=== PATIENT | male | born 1960 | race Caucasian/White ===

== ENCOUNTER → 2016-08-16 | Outpatient (CLI) | payer BC ==
--- NOTE | 2016-08-16 20:01 | CONS ---
DATE OF CONSULTATION: 08/16/2016 CONSULTATION/NEW PATIENT EVALUATION 55-year-old gentleman who has been [facility] for multiple awakenings from sleep, snoring, significant excessive daytime sleepiness. HISTORY OF PRESENT ILLNESS/SLEEP-WAKE EVALUATION: SLEEP SCHEDULE: Patient's usual sleep schedule on working days is from around 9:00 to 9:30 p.m. until 4:00 a.m., on weekends from around 10:00 p.m. until 6:00 a.m. FALLING ASLEEP: Usually no problems with falling asleep, although the patient has symptoms of restless legs while he goes to bed. He is taking medications for that. DURING SLEEP: During the sleep he snores according to his girlfriend and according to her he also has episodes of stopped breathing during sleep. Patient had significant amount of kicking at night. He wakes up with gasping for air. DURING THE DAY/WAKE STATE: In the morning he wakes up tired, falling asleep during the day. [place] Sleepiness Scale significantly increased to 19. He has problems with concentration, irritability and depression. No history of hypnagogic hallucinations, sleep paralysis or cataplexy. PAST MEDICAL HISTORY: Positive for hypertension, acid reflux. MEDICATIONS: Requip, meclizine, omeprazole, gabapentin. SOCIAL HISTORY: Smoking 1 pack a day for 30 years. Alcohol consumption, none. REVIEW OF SYSTEMS: Awakenings from sleep, significant sleepiness during the day, kicking during the night, restless leg symptoms while falling asleep. No fevers. No double vision. No recent chest pain. No shortness of breath. No abdominal pain. No bleeding episodes. No blood in urine. No seizure episodes. FAMILY HISTORY: Hypertension, heart problems, hyperlipidemia, arthritis, sinus headaches, bronchitis, lung problems, snoring, pneumonia, headaches, cancer, ulcers, acid reflux, restless legs. PHYSICAL EXAMINATION: GENERAL: 55-year-old gentleman without distress. VITAL SIGNS: BP 130/72, HR 65, RR 16. Height 6 feet, weight 193.0, BMI 26.1. Neck 16 inches in circumference. Temperature 97.5. Oxygen saturation at room air 95%. HEENT: PERRLA, EOMI. Evaluation of oropharynx showed low position of soft palate, retrognathia 5 mm, restriction of nasal breathing on the left side. NECK: Supple. No JVD. Thyroid is not palpable. LUNGS: Clear to percussion and to auscultation. Good air exchange. No wheezing or rhonchi. HEART: S1, S2 regular. No murmurs, gallops or rubs. ABDOMEN: Soft and nontender. Bowel sounds are present. No organomegaly appreciated. EXTREMITIES: No clubbing or cyanosis. [employer]: Awake, alert, and oriented x3. Cranial nerves 2 to 7 intact. There is no fasciculation or atrophy noted. No focal deficits observed. IMPRESSION: 1. Snoring, witnessed episodes of stopped breathing during sleep, low position of soft palate, restriction of nasal breathing on the left side, possible obstructive sleep apnea-hypopnea syndrome, although sleep study 4 years ago was negative for sleep apnea. 2. Restless leg syndrome. 3. Periodic limb movements. 4. Patient presented with symptoms of significant excessive daytime sleepiness. [place] Sleepiness Scale increased to 19. Differential diagnosis include hypersomnia if other reason for sleepiness will be excluded. 5. Hypertension. 6. Acid reflux. PLAN: 1. Polysomnography for evaluation of patient's breathing during sleep. 2. CPAP/BiPAP titration if sleep study confirms obstructive sleep apnea-hypopnea syndrome. 3. Preferable position during sleep on the side. 4. No driving if patient feels any sleepiness. Patient is aware of civil and criminal liability for unsafe driving. 5. I will see patient for follow-up visit to explain results of the testing and following plan. 6. Multiple sleep latency test if polysomnogram is negative for obstructive sleep apnea or periodic limb movements. Thank you very much for referring this patient for consultation. Sincerely, Bulmaro España MD, PhD, FAASM. Diplomat of [place] [employer], Sleep Medicine Board by [place] [employer] [place] [employer] Program Support Specialist of [facility]
== END | disposition home or self-care (01) ==
LOC: SLEEP 14:56
PROVIDERS: ATTEND Internal Medicine
DX: G47.61 Periodic limb movement disorder (principal); R06.83 Snoring; G25.81 Restless legs syndrome; I10 Essential (primary) hypertension; K21.9 Gastro-esophageal reflux disease without esophagitis; F17.200 Nicotine dependence, unspecified, uncomplicated
CPT/HCPCS: 99211

== ENCOUNTER 2016-11-30 08:54 | Emergency (ER) | payer BC ==
[2016-11-30 08:59] VITALS: BP 144/80; PULSE 73; RESP 20; TEMP 100.1
--- NOTE | 2016-11-30 09:17 | ED ---
General Adult HPI - General Chief complaint: Fever Stated complaint: fever Time Seen by Provider: 11/30/16 09:01 Source: patient, RN notes reviewed Mode of arrival: ambulatory Limitations: no limitations - History of Present Illness Initial comments: 56-year-old male presents emergency Department chief complaint of dental pain. He had a tooth extracted on Saturday and states he continues to have pain. Patient states today. She states that he had a fever. Patient states he continues to run some low-grade fevers. Patient states he's been taking his antibiotics alternating between the amoxicillin he received from his nurse practitioner as well as the penicillin he's been switching back and forth which states he is going to take it. Patient denies any pain into the neck or difficulty closing mouth. He was concerned due to his continued low-grade fevers today.that he should be evaluated.Patient denies any recentshortness of breath, chest pain, back pain, abdominal pain, nausea vomiting, numbness or tingling, dysuria or hematuria, constipation or diarrhea, headaches or visual changes, or any other current symptoms. - Related Data Home Medications Medication Instructions Recorded Confirmed Fluticasone/Salmeterol [Advair Hfa 2 puff INHALATION BID 07/02/13 07/03/13 115-21 Mcg Inhaler] rOPINIRole HCL [Requip] 1 mg PO HS 07/02/13 07/03/13 Previous Rx's Medication Instructions Recorded Clindamycin [Cleocin] 450 mg PO Q8HR #90 capsule 11/30/16 Allergies Allergy/AdvReac Type Severity Reaction Status Date / Time antihistamines Allergy Unknown Unknown Uncoded 11/30/16 08:59 Review of Systems ROS Statement: Those systems with pertinent positive or pertinent negative responses have been documented in the HPI. ROS Other: All systems not noted in ROS Statement are negative. Past Medical History Past Medical History: Cancer, COPD Additional Past Medical History / Comment(s): hx of melanoma- chest, hypoglycemic History of Any Multi-Drug Resistant Organisms: None Reported Additional Past Surgical History / Comment(s): ACL repair lt knee-sergio in place Past Anesthesia/Blood Transfusion Reactions: No Reported Reaction Smoking Status: Current every day smoker Past Alcohol Use History: None Reported Past Drug Use History: None Reported General Exam Limitations: no limitations General appearance: alert, in no apparent distress Eye exam: Present: normal appearance, PERRL, EOMI. Absent: scleral icterus, conjunctival injection, periorbital swelling ENT exam: Present: normal exam, mucous membranes moist, other (No abscess noted. Tooth extraction at tooth #10. Well-healing. No bleeding.) Neck exam: Present: normal inspection. Absent: tenderness, meningismus, lymphadenopathy Respiratory exam: Present: normal lung sounds bilaterally. Absent: respiratory distress, wheezes, rales, rhonchi, stridor Cardiovascular Exam: Present: regular rate, normal rhythm, normal heart sounds. Absent: systolic murmur, diastolic murmur, rubs, gallop, clicks Neurological exam: Present: alert, oriented X3 Psychiatric exam: Present: normal affect, normal mood Skin exam: Present: warm, dry, intact, normal color. Absent: rash Course Vital Signs 11/30/16 08:57 Temperature 100.1 F H Pulse Rate 73 Respiratory 20 Rate Blood Pressure 144/80 O2 Sat by Pulse 98 Oximetry Medical Decision Making - Medical Decision Making 48-year-old male presents for dental pain and low-grade fevers. At this time we will cyst patient clindamycin. Discussed follow-up we discussed return parameters all patient's and family's questions. Patient stated that he understood he is in agreement. All questions have been answered. This time he will be discharged home. Disposition Clinical Impression: Pain, dental Disposition: HOME SELF-CARE Condition: Stable Instructions: Fever in Adults (ED), Toothache (ED) Additional Instructions: Please use medication as discussed. Please follow up with family doctor if symptoms have not improved over the next two days. Please return to the emergency room if your symptoms increase or worsen or for any other concerns. Prescriptions: Clindamycin [Cleocin] 450 mg PO Q8HR #90 capsule Referrals: Gucci Smiley MD [Primary Care Provider] - 1-2 days Time of Disposition: 09:16
== END 2016-11-30 09:29 | disposition home or self-care (01) ==
LOC: EC 08:54
DX: K08.89 Other specified disorders of teeth and supporting structures (principal); R50.9 Fever, unspecified; J44.9 Chronic obstructive pulmonary disease, unspecified; F17.200 Nicotine dependence, unspecified, uncomplicated; Z85.820 Personal history of malignant melanoma of skin; Z79.51 Long term (current) use of inhaled steroids; Z79.899 Other long term (current) drug therapy; Z88.8 Allergy status to other drugs, medicaments and biological substances
CPT/HCPCS: 99283

== ENCOUNTER → 2017-01-08 | Outpatient (CLI) | payer BC ==
--- NOTE | 2017-01-09 07:34 | XR ---
EXAMINATION TYPE: XR lumbar spine 2 or 3V DATE OF EXAM: 01/08/2017 CLINICAL HISTORY: Low back pain TECHNIQUE: Frontal and lateral images of the lumbar spine were obtained. COMPARISON: None FINDINGS: There are 5 lumbar type vertebral bodies identified. Moderate multilevel degenerative velazquez ges are seen of the visualized thoracolumbar spine with anterior osteophytes, intervertebral disc spa ce narrowing, endplate sclerosis and facet arthropathy. These findings are most exaggerated at L5-S1 and T11-T12. No evidence of acute fracture of the lumbar spine. The lumbar spine shows satisfactory a lignment without anterolisthesis or retrolisthesis. Vertebral body heights and disk space heights are within normal limits. IMPRESSION: 1. No acute fracture or malalignment is seen in the lumbar spine. 2. Moderate multilevel degenerative disc disease most exaggerated at L5-S1 and T11-T12. If clinically indicated MR could be performed of the lumbar spine for evaluation of disc herniation, spinal canal stenosis and neural foraminal narrowing.
== END | disposition home or self-care (01) ==
LOC: RADXRMAIN 16:46
PROVIDERS: ATTEND Nurse Practitioner Primary Care
DX: M51.37 Other intervertebral disc degeneration, lumbosacral region (principal)
CPT/HCPCS: 72100

== ENCOUNTER → 2017-04-17 | Outpatient (CLI) | payer BC ==
--- NOTE | 2017-04-24 10:53 | P.ARTDOP ---
Arterial Doppler LOWER EXTREMITY ARTERIAL DOPPLER: DATE OF SERVICE: 04/17/2017 Reason for study: Bilateral foot pain. Doppler waveforms: Multiphasic bilaterally throughout. Pulse volume recording: Normal configuration except at the toe level which is very flattened. Pressure gradients: Only at the toe level. Ankle-brachial indices: Greater than 1 bilaterally. Toe pressures: 51 on the right, 72 on the left Impression: Normal study at an above the ankle bilaterally. Decreased toe pressures most likely related to vasospastic phenomenon. Scattered microemboli much less likely. Distal occlusive disease even less likely. Clinical correlation recommended..
== END | disposition home or self-care (01) ==
LOC: RADUSWWP 15:04
PROVIDERS: ATTEND Internal Medicine
DX: I73.9 Peripheral vascular disease, unspecified (principal)
CPT/HCPCS: 93923

== ENCOUNTER → 2017-06-28 | Outpatient (CLI) | payer BC | END | disposition home or self-care (01) | LOC: LABWHC1 13:59 | PROVIDERS: ATTEND Orthopaedic Surgery | DX: Z01.812 Encounter for preprocedural laboratory examination (principal) | CPT/HCPCS: 87070 ==

== ENCOUNTER 2017-07-22 10:59 | Inpatient (IN) | payer BC ==
[2017-07-11 16:47] VITALS: BMI 24.3
[~2017-07-22 10:59] MED LIST: ACETAMINOPHEN TAB 500 MG TAB PO ONE; DEXAMETHASONE SOD PHOSPHATE 10 MG/ML 1 ML VIAL IV ONE; LACTATED RINGERS 1,000 ML IV SCH; LIDOCAINE 1% 20 ML VIAL (10MG/ML) FOR IV START INTRADERMA PRN; MELOXICAM 7.5 MG TAB PO ONE; MORPHINE SULFATE 4 MG/ML SYRINGE IV PRN; ONDANSETRON 4 MG/2 ML VIAL IVP ONE; TRANEXAMIC ACID 1,000 MG in SODIUM CHLORIDE 0.9% 50 ML IVPB ONE
[2017-07-22 11:47] VITALS: RESP 16
[2017-07-22] MEDS ORDERED: FAMOTIDINE 20 MG/2 ML VIAL ONE (12:19)
[2017-07-22] MEDS ORDERED: METOCLOPRAMIDE 5 MG/ML 2 ML VIAL ONE (12:19)
[2017-07-22] MEDS ORDERED: MIDAZOLAM 2 MG/2 ML VIAL ONE ×2 (12:31→12:45)
[2017-07-22] MEDS ORDERED: ePHEDrine SULFATE/0.9% NACL/PF 50 MG/5 ML SYRINGE IV ONE (12:45)
[2017-07-22] MEDS ORDERED: PROPOFOL 10 MG/ML 20 ML VIAL IV ONE (12:45)
[2017-07-22] MEDS ORDERED: fentaNYL (PF) 50 MCG/ML 2 ML AMP ONE (12:45)
[2017-07-22] MEDS ORDERED: TRANEXAMIC ACID 1,000 MG/10 ML VIAL ONE (12:45)
[2017-07-22] MEDS ORDERED: SODIUM CHLORIDE 0.9% 100 ML BAG ONE (12:45)
[2017-07-22] MEDS ORDERED: ROPIVACAINE 246.25 MG, EPINEPHrine 0.5 MG, KETOROLAC 30 MG, cloNIDine HCL/PF 80 MCG, WA... MISCELLANE ONE ×5 (12:49)
[2017-07-22] MEDS ORDERED: ceFAZolin 3,000 MG in SODIUM CHLORIDE 0.9% IRRIGATIO 3,000 ML IRRIGATION ONE (13:34)
[2017-07-22] MEDS ORDERED: LACTATED RINGERS 1,000 ML IV ONE ×4 (13:45→17:40)
[2017-07-22] MEDS ORDERED: BISACODYL 10 MG SUPP RECTAL PRN (15:23)
[2017-07-22] MEDS ORDERED: NA PHOS,M-B/NA PHOS,DI-BA 133 ML ENEMA RECTAL PRN (15:23)
[2017-07-22] MEDS ORDERED: HYDROmorphone 0.5 MG/0.5 ML SYRINGE IVP PRN ×4 (15:23)
[2017-07-22] MEDS ORDERED: NALOXONE 0.4 MG/ML 1 ML VIAL IV PRN (15:23)
[2017-07-22] MEDS ORDERED: MAGNESIUM HYDROXIDE 2,400 MG/10 ML CUP PO PRN (15:23)
[2017-07-22] MEDS ORDERED: HYDROcodone/APAP 7.5-325MG 1 EACH TAB PO PRN (15:23)
[2017-07-22] MEDS ORDERED: diphenhydrAMINE 50 MG/ML 1 ML VIAL IVP ONE (15:37)
[2017-07-22] MEDS ORDERED: fentaNYL (PF) 50 MCG/ML 2 ML AMP IVP ONE (15:42)
[2017-07-22] MEDS ORDERED: MIDAZOLAM 2 MG/2 ML VIAL IVP ONE (15:54)
--- NOTE | 2017-07-22 16:03 | XR ---
Limited right knee HISTORY: Postop 2 views of the right knee Patient is status post right knee arthroplasty. Lucency in the soft tissues compatible with postop st ate. There is anatomic alignment. IMPRESSION: Orthopedic follow-up.
[2017-07-22] MEDS ORDERED: LORazepam 2 MG/ML INJ IV ONE ×2 (16:26→16:40)
[2017-07-22] MEDS ORDERED: fentaNYL (PF) 50 MCG/ML 2 ML AMP IV ONE (16:57)
[2017-07-22] MEDS: LACTATED RINGERS 1,000 ML IV SCH (17:19)
[2017-07-22] MEDS ORDERED: WARFARIN 5 MG TAB PO ONE (18:00)
[2017-07-22] MEDS ORDERED: rOPINIRole HCL 4 MG TABLET PO SCH (18:00)
[2017-07-22] MEDS ORDERED: LORazepam 2 MG/ML INJ IV PRN (18:39)
[2017-07-22] MEDS: NICOTINE 21MG/24HR PATCH TRANSDERM SCH (18:53)
--- NOTE | 2017-07-22 18:57 | CONS ---
CONSULTATION DATE OF CONSULTATION: 07/22/2017 REASON FOR CONSULTATION: Medical management requested by Dr. Correa. CONSULTATION: This is a pleasant 56-year-old patient of Dr. Smiley who has undergone right total knee arthroplasty by Dr. Correa. Chronic stable medical conditions include COPD, hypertension, osteoarthritis. Post procedure patient has increasing jerking of his right leg. Patient has underlying restless legs syndrome, which is playing up. Breathing is stable. No chest pain or shortness of breath. No nausea or vomiting. Denies any cardiac history. REVIEW OF SYSTEMS: CONSTITUTIONAL: None. HEENT: None. RESPIRATORY: None. CARDIOVASCULAR: None. GASTROINTESTINAL: None. GENITOURINARY: None. MUSCULOSKELETAL: Arthritic pain in joints. DERMATOLOGICAL: None. HEMATOLOGICAL: None. LYMPHATICS: None. PSYCHIATRY: None. NEUROLOGICAL: Jumpy right leg. PAST MEDICAL HISTORY: 1. COPD. 2. Hypertension. 3. Osteoarthritis. 4. Melanoma of the chest. 5. Hypoglycemia. 6. Restless legs syndrome. PAST SURGICAL HISTORY: 1. ACL repair of the left knee. 2. Removal of melanoma from the upper chest in 1999. 3. Bilateral axillary lymph nodes removed. 4. Colonoscopy. SOCIAL HISTORY: Has smoked a pack a day for close to 42 years. Lives with girlfriend. Denies alcohol. Employed. FAMILY HISTORY: Cancer; type unknown. HOME MEDICATIONS: 1. Requip XL 8 mg at bedtime. 2. Norvasc 10 mg p.o. daily. 3. Dulera 100/5 two puffs at bedtime. 4. Losartan 50 mg p.o. daily. 5. Coumadin 2.5 p.o. daily. 6. Senokot S one tablet p.o. b.i.d. 7. Lov[place] 7.5 one to two tablets q.4 p.r.n. ALLERGIES: 1. ANTIHISTAMINIC. 2. IBUPROFEN. PHYSICAL EXAMINATION: Temperature 98.2, pulse 72, respiration 16, blood pressure 142/79, pulse ox 98% on room air. GENERAL APPEARANCE: Average build. Lying in bed. Not in distress. EYES: Pupils equal. Conjunctivae normal. HEENT: External appearance of nose and ears normal. Oral cavity normal. NECK: JVD not raised. Mass not palpable. RESPIRATORY: Effort normal. Lungs are clear. CARDIOVASCULAR: First and second sounds normal. No edema. ABDOMEN: Soft, nontender. Liver and spleen not palpable. LYMPHATIC: No lymph node palpable in neck or axillae. PSYCHIATRY: Alert and oriented x3. Mood and affect normal. NEUROLOGICAL: Pupils equal. Cranial nerves grossly intact. Power and sensation grossly intact. Restless right leg. MUSCULOSKELETAL: Dressing over the right knee. Some evidence of arthritis in the hands and the left knee. INVESTIGATIONS: No blood work from today. ASSESSMENT: 1. Right total knee arthroplasty. 2. Primary osteoarthritis. 3. Essential hypertension. 4. Chronic obstructive pulmonary disease in a current smoker. 5. Chronic nicotine dependence. Patient is a cigarette smoker. 6. Restless legs syndrome, currently uncontrolled. PLAN: Home medications will be resumed, including starting his Requip rather earlier. Pain control is in place. DVT prophylaxis per Dr. Correa. Care was discussed with the patient. Questions were answered. Thank you, Dr. Correa. MMBLADIMIRL / SEFERINON: [id number] /
[2017-07-22] MEDS: ceFAZolin IN SWFI 2 GM/20 ML SYRINGE IVP SCH (20:25)
[2017-07-22] MEDS: HYDROcodone/APAP 7.5-325MG 1 EACH TAB PO PRN (20:25)
[2017-07-22] MEDS ORDERED: ROPINIROLE HCL 8 MG PO SCH (21:00)
[2017-07-22] MEDS ORDERED: SENNOSIDES-DOCUSATE SODIUM 1 EACH TAB PO SCH (21:00)
[2017-07-22] MEDS: SYMBICORT 80-4.5 MCG INHALER INHALATION SCH (21:05)
[2017-07-23] MEDS: LACTATED RINGERS 1,000 ML IV SCH ×2 (01:03→14:01)
[2017-07-23] MEDS: HYDROcodone/APAP 7.5-325MG 1 EACH TAB PO PRN (04:46)
[2017-07-23] MEDS: ceFAZolin IN SWFI 2 GM/20 ML SYRINGE IVP SCH (04:47)
[2017-07-23 07:13] VITALS: BP 124/63; PULSE 80; TEMP 98.8
[2017-07-23 08:20] LABS: INR 1.2 (<1.2); Prothrombin Time 11.5 sec (9.0-12.0)
[2017-07-23 08:26] LABS: Basophils % (A) 0 %; Eosinophils % (A) 0 %; HCT 35.6 % (39.0-53.0); HGB 12.2 gm/dL (13.0-17.5); Lymphocytes # (A) 1.1 k/uL (1.0-4.8); Lymphocytes % (A) 7 %; MCH 31.1 pg (25.0-35.0); MCHC 34.2 g/dL (31.0-37.0); MCV 91.1 fL (80.0-100.0); Mean Platelet Volume 7.5; Monocytes # (A) 0.8 k/uL (0-1.0); Monocytes % (A) 5 %; Neutrophils # (A) 15.1 k/uL (1.3-7.7); Neutrophils % (A) 88 %; Platelet Count 181 k/uL (150-450); RBC 3.91 m/uL (4.30-5.90); RDW 13.3 % (11.5-15.5); WBC 17.2 k/uL (3.8-10.6)
--- NOTE | 2017-07-23 08:55 | P.DS ---
Providers Date of admission: 07/22/17 10:59 Expected date of discharge: 07/23/17 Attending physician: Arnold Correa Consults: 07/22/17 15:23 Consult Physician Routine Consulting Provider: Gucci Smiley Consult Reason/Comments: Medical management Do you want consulting provider notified?: Yes 07/22/17 15:45 Consult Physician Routine Consulting Provider: Meir Cross Consult Reason/Comments: medical management Do you want consulting provider notified?: Yes Primary care physician: Gucci Smiley - Discharge Diagnosis(es) (1) Status post total right knee replacement Current Visit: Yes Status: Acute (2) Osteoarthritis of right knee Current Visit: Yes Status: Acute Hospital Course: This is a pleasant 56-year-old male last seen in our office with complaints of right knee pain. Patient has known history of degenerative arthritis of the right knee and presented to discuss options. After discussion and consideration , patient elected to proceed with a total knee arthroplasty of the right knee. The patient was seen preoperatively and medically cleared for surgery by his primary care physician. The patient was admitted to [facility] and underwent right total knee arthroplasty on 07/22/[address] Correa. The procedure was performed without complications or sequelae. The patient has done well postoperatively. The patient was seen and evaluated at bedside today and denies any new complaints. Pain is reasonably controlled. Dressing is clean dry and intact. Incision looks fine with no erythema or active drainage. Calf is soft and nontender. The patient has full foot and ankle motion without difficulty. Patient's right lower extremity is neurovascular intact. Patient is orthopedically stable for discharge to home today. Pertinent Studies: Laboratory Tests 07/23/17 07/23/17 07:17 07:17 WBC 17.2 H RBC 3.91 L Hgb 12.2 L Hct 35.6 L Neutrophils # 15.1 H PT 11.5 INR 1.2 H Patient Condition at Discharge: Stable Plan - Discharge Summary Discharge Rx Participant: Yes New Discharge Prescriptions: New HYDROcodone/APAP 7.5-325MG [[place] 7.5-325] 1 - 2 tab PO Q4-6H PRN #90 tab PRN Reason: Pain Sennosides-Docusate Sodium [Senokot-S] 1 tab PO BID #60 tablet Warfarin [Coumadin] 2.5 mg PO DAILY #1 tab No Action rOPINIRole HCL [Requip Xl] 8 mg PO HS amLODIPine [Norvasc] 10 mg PO DAILY Mometasone/Formoterol [Dulera 100 Mcg/5 Mcg Inhaler] 2 puff INHALATION RT-HS Losartan Potassium 50 mg PO DAILY Discharge Medication List amLODIPine [Norvasc] 10 mg PO DAILY 11/30/16 [History] rOPINIRole HCL [Requip Xl] 8 mg PO HS 11/30/16 [History] Losartan Potassium 50 mg PO DAILY 07/11/17 [History] Mometasone/Formoterol [Dulera 100 Mcg/5 Mcg Inhaler] 2 puff INHALATION RT-HS 12/19 [History] HYDROcodone/APAP 7.5-325MG [[place] 7.5-325] 1 - 2 tab PO Q4-6H PRN #90 tab [Rx] Sennosides-Docusate Sodium [Senokot-S] 1 tab PO BID #60 tablet 07/22/17 [Rx] Warfarin [Coumadin] 2.5 mg PO DAILY #1 tab 07/22/17 [Rx] Follow up Appointment(s)/Referral(s): Karley Graff PAC [PHYSICIAN PROFESSIONAL MODEL] - 2 Weeks Gucci Smiley MD [Primary Care Provider] - 1 Week Ambulatory/Diagnostic Orders: Continuous Passive Motion (CPM) Machine [DME.AMB1] Time Frame: 3 Weeks, Facility : [facility], Location: Case Management Prothrombin Time INR [LAB.AMB] Location: Determined By Patient Activity/Diet/Wound Care/Special Instructions: May shower if no drainage from incision. May bear wt as tolerated. CPM 5-6h daily. Discharge Disposition: HOME WITH HOME HEALTH SERVICES
[2017-07-23] MEDS ORDERED: amLODIPine 10 MG TAB PO SCH (09:00)
[2017-07-23] MEDS ORDERED: LOSARTAN 50 MG TAB PO SCH (09:00)
[2017-07-23] MEDS: SYMBICORT 80-4.5 MCG INHALER INHALATION SCH (09:02)
[2017-07-23] MEDS: NICOTINE 21MG/24HR PATCH TRANSDERM SCH (09:04)
[2017-07-23] MEDS ORDERED: MULTIVITAMINS, THERA 1 EACH TAB PO SCH (12:00)
[2017-07-23] MEDS ORDERED: WARFARIN 5 MG TAB PO ONE (18:00)
--- NOTE | 2017-07-23 23:42 | PN ---
PROGRESS NOTE DATE OF SERVICE: July 23, 2017 PRESENTING COMPLAINT: Right knee surgery. INTERVAL HISTORY: Patient is status post right knee surgery. Pain is controlled. Restless leg syndrome is controlled. No nausea, vomiting, did tolerate his breakfast. is at the bedside. Did work with therapy. REVIEW OF SYSTEMS: Done for constitutional, cardiovascular, GI, pulmonary, musculoskeletal and relevant findings as above. CURRENT MEDICATIONS: Reviewed. EXAMINATION: Temperature 98.8, pulse 80, respiration 16, blood pressure 124/63, pulse ox 93% on room air. General appearance: Lying in bed, comfortable. Eyes pupils are equal. Conjunctivae normal. HEENT: External appearance of nose and ears normal. Oral cavity normal. Neck JVD not raised. Mass not palpable. Respiratory effort normal. Lungs are clear. Cardiovascular: 1st and 2nd sounds normal. No edema. ABDOMEN: Soft, nontender. Liver and spleen not palpable. Psychiatry: Alert and oriented x3. Mood and affect is normal. INVESTIGATIONS: White count 7.2, hemoglobin 12.2. ASSESSMENT: 1. Right total knee arthroplasty. 2. Primary osteoarthritis. 3. Essential hypertension. 4. Chronic obstructive pulmonary disease in a current smoker. 5. Chronic nicotine dependence, patient is a cigarette smoker. 6. Restless legs syndrome, controlled. 7. Leukocytosis likely reactive. Incision healing well per Orthopedics. PLAN: Continue current medication and treatment plan. Patient is stable. MMODL / IJN: [id number] /
--- NOTE | 2017-07-31 17:18 | P.OP ---
Date of Procedure: 07/22/17 Procedure(s) Performed: PREOPERATIVE DIAGNOSIS: Right knee severe osteoarthritis with genu varum POSTOPERATIVE DIAGNOSIS: Right knee severe osteoarthritis with genu varum OPERATION: Right knee cemented total replacement arthroplasty. ANESTHESIA: Spinal ESTIMATED BLOOD LOSS: 100 ml. PAINT SPRAY INSPECTOR: Karley Graff PA-C (assistance with: patient positioning, retraction, exposure, hemostasis, leg positioning, implantation, irrigation, closure, dressing) COMPLICATIONS: None apparent. COMPONENTS IMPLANTED: Persona system from [employer] INDICATIONS: Mr. Spence is a 56-year-old male with a history of knee osteoarthritis. The patient's knee is end-stage, and conservative management has failed. The operation of knee replacement has been discussed at length in the office, as well as potential risks and complications. These are inclusive of, but not limited to: bleeding, infection, scarring, discomfort, blood vessel and nerve damage, need for further surgery, failure to relieve symptoms, persistence, recurrence, or worsening of problems, loosening, dislocation, wear , blood clot, pulmonary embolism, , gait dysfunction, stiffness, and other risks as discussed in the office. The patient elects to proceed and the consent form has been signed. PROCEDURE: The patient was taken to the operating room and positioned on the operating room table in the supine position. Anesthesia was initiated. Care was taken to make sure that all pressure points were adequately padded. The operative lower extremity was prepped and draped in the usual aseptic fashion using ChloraPrep. Ioban drape was used for the case and the patient received intravenous antibiotics within one hour of the incision. A pneumotourniquet and leg cisneros were used for the case. The limb was exsanguinated with an Esmarch bandage and the tourniquet was inflated to 350 mmHg. Time-out was called confirming the patient's identity, side, procedure and administration of antibiotics. The incision was then created midline directly over the knee, carried down through skin and into the subcutaneous tissues and down to fascia. Full thickness subcutaneous medial flap was developed. Medial parapatellar arthrotomy was performed and the interior of the knee was inspected. There was end-stage osteoarthritis of the knee with a mild to moderate genu varum type deformity. The fat pad was excised and proximal medial release on the tibia was completed using meticulous dissection and a curved osteotome. The anterior cruciate ligament was taken down. Note was made of significant attrition of the anterior and significant degenerative appearance of the posterior cruciate ligaments. The exposure was excellent. The knee was flexed 90 degrees and the patella was everted. A spot was chosen on the femur approximately 1 cm anterior to the posterior cruciate ligament insertion and an intramedullary hole was created within the femur. The intramedullary guide was then set to 5 degrees of valgus. The distal cutting block was attached and pinned into position. An appropriate amount of distal femoral resection was set. The oscillating saw was then used to make the distal femoral cut. This cut was confirmed to be flat with the flat end of an osteotome. The retractors were placed around the tibia and the tibial surface was addressed. The angle and depth of resection was adjusted using an extramedullary cutting guide. The guide had a built-in 3 degree posterior slope cut. Once the cutting guide was adjusted appropriately and in line with the axis of the tibia and confirmed to be in good position in relation to the second metatarsal and transmalleolar axis, the tibial cut was then created with protection of the posterior neurovascular structures and the collateral ligaments. The tibial cut surface was removed and sized. Femoral sizing was then accomplished using anterior referencing. Care was taken to analyze the posterior condyles for signs of deficiency or severe wear, and adjustments to the guide were made, as appropriate. 3 degree external rotation pins were placed. The cutting jig for the femur was applied to these pins. The planned cuts were further analyzed prior to performing them with the oscillating saw. No femoral notching was produced. Bone fragments were removed and the cut surfaces were finished, as necessary, with a reciprocating saw. Spacer block technique was then used to confirm that the flexion and extension gaps were equal. Soft tissue releases and adjustment of the tibial and/or femoral cuts were made, as necessary, until the gaps were equal. This included release of the posterior cruciate ligament, which was tight in this patient and , if left unreleased, would have resulted in poor kinematics and possibly early loosening. The femur was then further finished for a posterior cruciate ligament substituting component. Patellar resurfacing was performed using a reamer. The size of the required patellar component was estimated and the patellar surface was then reamed down to a residual thickness which would recreate the naknek thickness with the component. The placement of the patellar component was influenced by the degree of patellar subluxation, if any, noted on the preoperative x-rays. Prior to placing trial components, anesthetic solution consisting of ropivicaine with epinephrine, ketorolac, and clonidine was injected carefully and methodically in a grid pattern using aspiration technique into the soft tissue around the knee circumferentially, starting with the deeper tissues first and progressing to fascia, and then finally the skin/subcutaneous tissue. Particular care was taken when injecting the posterior capsule. The trial components were inserted. The tibial tray was allowed to self center and the patella was noted to track very well. The position of the tibial component was marked and the tibia was then finished for a stemmed tibial component. Cement was mixed on the back table and applied to the final components. Trial components were removed and the cut surfaces of the bone were pulse lavaged thoroughly and dried. Cement was then applied to the tibial surface and pressurized into the surface using finger pressurization technique. The tibial component was then applied and excess cement was removed after it was impacted securely and noted to be flush with the cut surface. In similar fashion, the cement was applied to the cut femoral surface, pressurized in using finger pressurization and the component was impacted into place. Excess cement was removed. The polyethylene spacer was then implanted and locked into position. The patellar component was then applied in similar technique and a patellar clamp was used to hold the patella in place as the cement hardened. Once the cement had fully hardened, the knee was reinspected. Any other cement extrusion was removed and final kinematic testing showed range of motion from 0 to 130 degrees with excellent stability, both medially and laterally and appropriate alignment of the leg. Patellar tracking was excellent. The knee was then thoroughly pulse lavaged with normal saline. The tourniquet was deflated and hemostasis was obtained with electrocautery and IV tranexamic acid, 1 g given at the start of the operation and 1 g at the start of closure. Closure was with #2 Ethibond in the fascia/capsule and supplemented with #2 Quill, 2-0 Vicryl suture was used for the subcutaneous tissues and 3-0 Quill for the skin. Dermabond/Steri-Strips were then applied. A lightly compressive dressing was applied using Webril and an French wrap. The patient was then transferred to stretcher and taken to the recovery room in stable condition. Sponge and needle counts were correct.
== END 2017-07-23 14:00 | disposition home health service (06) | DRG 470 ==
LOC: 2ORMAIN 10:59 → 3SUR 15:20
PROVIDERS: ADMIT Orthopaedic Surgery; ATTEND Orthopaedic Surgery
PROC: 0SRC0J9 Replacement of Right Knee Joint with Synthetic Substitute, Cemented, Open Approach (ICD-10-PCS; principal; 2017-07-22 12:30)
DX: M17.11 Unilateral primary osteoarthritis, right knee (principal); D72.829 Elevated white blood cell count, unspecified; F17.210 Nicotine dependence, cigarettes, uncomplicated; G25.81 Restless legs syndrome; M21.161 Varus deformity, not elsewhere classified, right knee; I10 Essential (primary) hypertension; J44.9 Chronic obstructive pulmonary disease, unspecified; G47.00 Insomnia, unspecified; G62.9 Polyneuropathy, unspecified; K21.9 Gastro-esophageal reflux disease without esophagitis; Z79.899 Other long term (current) drug therapy; Z79.01 Long term (current) use of anticoagulants; Z88.6 Allergy status to analgesic agent; Z88.8 Allergy status to other drugs, medicaments and biological substances; Z85.820 Personal history of malignant melanoma of skin; Z87.11 Personal history of peptic ulcer disease; Z82.49 Family history of ischemic heart disease and other diseases of the circulatory system
CPT/HCPCS: 85025; 85610; 88300

== ENCOUNTER → 2017-12-13 | Outpatient (CLI) | payer BC ==
--- NOTE | 2017-12-18 10:56 | P.ARTDOP ---
Arterial Doppler LOWER EXTREMITY ARTERIAL DOPPLER: DATE OF SERVICE: 12/13/2017 Reason for study: Restless leg syndrome. Doppler waveforms: Multiphasic bilaterally throughout. Pulse volume recording: Normal configuration. Pressure gradients: None. Ankle-brachial indices: 0.98 on the right and greater than 1 on the left. Toe pressures: [] on the right, [] on the left Impression: Normal study.
== END ==
LOC: RADUSWWP 13:36
PROVIDERS: ATTEND Family Medicine
DX: I73.9 Peripheral vascular disease, unspecified (principal)
CPT/HCPCS: 93923

== ENCOUNTER → 2018-07-23 | Outpatient (CLI) | payer BC ==
--- NOTE | 2018-07-23 14:33 | NM ---
EXAMINATION TYPE: NM bone scan whole body DATE OF EXAM: 07/23/2018 COMPARISON: Plain film 07/22/2017, lumbar spine 01/08/2017 HISTORY: Knee pain Delayed whole-body scanning was performed following the injection of 24.6 mCi Tc 99m MDP. Images acq uired 3 hours post injection. Initial blood flow, blood pool and delayed imaging obtained. FINDINGS: Increased blood flow and blood pool imaging and noted to the right knee is compared to left, some mil d increased blood pool activity noted on the left as well. Delayed imaging shows uptake in the medial compartment of the left knee which is likely due to osteoarthritis. Photopenic defect at the right k nee is compatible with postop changes. There is focal uptake present especially along the lateral tib ial plateau greater than medial on delayed imaging in the right knee. Delayed whole-body imaging also shows uptake within the wrists, shoulders, sternoclavicular joints as well as lumbar spine. IMPRESSION: Abnormal uptake in the right knee could be related to loosening or infection. There are degenerative changes as described, there are degenerative disc disease changes within the lumbar spine
== END | disposition home or self-care (01) ==
LOC: RADNMMAIN 07:33
PROVIDERS: ATTEND Orthopaedic Surgery
DX: R93.7 Abnormal findings on diagnostic imaging of other parts of musculoskeletal system (principal); M17.12 Unilateral primary osteoarthritis, left knee; M25.561 Pain in right knee; I11.9 Hypertensive heart disease without heart failure; C80.1 Malignant (primary) neoplasm, unspecified; F17.200 Nicotine dependence, unspecified, uncomplicated; Z09 Encounter for follow-up examination after completed treatment for conditions other than malignant neoplasm; Z96.651 Presence of right artificial knee joint
CPT/HCPCS: 78306; A9503

== ENCOUNTER → 2021-04-26 | Outpatient (CLI) | payer BC ==
--- NOTE | 2021-04-27 03:10 | MR ---
EXAMINATION TYPE: MR brain wo con DATE OF EXAM: 04/26/2021 COMPARISON: None HISTORY: Dizziness, diplopia. Multiplanar multiecho imaging of the brain without contrast. Ventricles have normal size. There is no mass effect nor midline shift. There is no sign of intracran ial hemorrhage. Diffusion images show no evidence of an acute infarct. There is on the T2 and FLAIR i mages subtle increased signal in the antonio bilaterally. This measures 5 mm. There are scattered white matter high signal foci at the lance-white matter junction of both cerebral hemispheres. Total number approximately 20 and most of these measure less than 3 mm. Largest is in the right parietal lobe and right posterior frontal lobe measuring 6 mm. There is some mild mucosal thickening in the posterior ethmoid air cells. IMPRESSION: White matter signal changes are somewhat peripheral and likely related to mild microvascular ischemia . No acute infarct.
== END | disposition home or self-care (01) ==
LOC: RADMRIMAIN 17:35
PROVIDERS: ATTEND Family Medicine
DX: H53.2 Diplopia (principal)
CPT/HCPCS: 70551

== ENCOUNTER 2022-10-05 16:59 | Emergency (ER) | payer OTHER, BC ==
[2022-10-05 17:07] VITALS: BP 135/81; RESP 16; TEMP 98
--- NOTE | 2022-10-05 17:33 | XR ---
EXAMINATION TYPE: XR foot complete LT DATE OF EXAM: 10/05/2022 COMPARISON: None HISTORY: Object dropped on foot TECHNIQUE: 3 view left foot FINDINGS: No acute fracture or dislocation is evident. Joint spaces are preserved. Plantar calcaneal heel spur is present. Soft tissues are normal. Follow up exams can be performed 7-10 days from acute trauma for continued pain. IMPRESSION: 1. No acute osseous abnormality left foot
--- NOTE | 2022-10-05 17:56 | ED ---
General Adult HPI - General Chief complaint: Extremity Injury, Lower Stated complaint: Lt foot injury Time Seen by Provider: 10/05/22 17:11 Source: patient Mode of arrival: ambulatory Limitations: no limitations - History of Present Illness Initial comments: 62-year-old male presenting to the ED with a chief complaint of left foot injury. Patient states that he dropped a cast mold weighing approximately 3-5 pounds from hip height onto his left foot. Now notes pain of the left foot and states that he wants to ensure that he did not break anything. Patient ambulatory on arrival. No other complaints at this time. - Related Data Home Medications Medication Instructions Recorded Confirmed amLODIPine [Norvasc] 10 mg PO DAILY 11/30/16 07/22/17 rOPINIRole HCL [Requip Xl] 8 mg PO HS 11/30/16 07/22/17 Losartan Potassium 50 mg PO DAILY 07/11/17 07/22/17 Mometasone/Formoterol [Dulera 100 2 puff INHALATION RT-HS 07/11/17 07/22/17 Mcg/5 Mcg Inhaler] Previous Rx's Medication Instructions Recorded HYDROcodone/APAP 7.5-325MG [[place]ckney 1 - 2 tab PO Q4-6H PRN #90 tab 07/22/17 7.5-325] Sennosides-Docusate Sodium 1 tab PO BID #60 tablet 07/22/17 [Senokot-S] Warfarin [Coumadin] 2.5 mg PO DAILY #1 tab 07/22/17 Allergies Allergy/AdvReac Type Severity Reaction Status Date / Time Antihistamines - Ethanolamine AdvReac Rapid Verified 10/05/22 17:08 Heart Rate Review of Systems ROS Statement: Those systems with pertinent positive or pertinent negative responses have been documented in the HPI. ROS Other: All systems not noted in ROS Statement are negative. Past Medical History Past Medical History: Cancer, COPD Additional Past Medical History / Comment(s): hx of melanoma- chest, hyp oglycemic, restless leg syndrome History of Any Multi-Drug Resistant Organisms: None Reported Past Surgical History: Orthopedic Surgery Additional Past Surgical History / Comment(s): ACL repair lt knee-sergio in place Past Anesthesia/Blood Transfusion Reactions: No Reported Reaction Past Psychological History: No Psychological Hx Reported Smoking Status: Current every day smoker Past Alcohol Use History: None Reported Past Drug Use History: None Reported - Past Family History Father Family Medical History: Cancer General Exam Limitations: no limitations General appearance: alert, in no apparent distress Eye exam: Present: normal appearance Neck exam: Present: normal inspection Respiratory exam: Present: normal lung sounds bilaterally Cardiovascular Exam: Present: regular rate, normal rhythm Extremities exam: Present: other (Strength and sensation intact of left lower extremity. DP/PT pulses intact. Diffuse tenderness to palpation of the left foot however no crepitus or step-off or obvious deformity.) Neurological exam: Present: alert, oriented X3 Skin exam: Present: warm, dry Course Vital Signs 10/05/22 17:05 Temperature 98 F Pulse Rate 61 Respiratory 16 Rate Blood Pressure 135/81 O2 Sat by Pulse 96 Oximetry Medical Decision Making - Medical Decision Making Was pt. sent in by a medical professional or institution (, PA, PUBLIC RELATIONS INTERN, urgent care, hospital, or [facility]...) When possible be specific @ -No Did you speak to anyone other than the patient for history (EMS, parent, family, police, friend...)? What history was obtained from this source @ -No Did you review nursing and triage notes (agree or disagree)? Why? @ -I reviewed and agree with nursing and triage notes Were old charts reviewed (outside hosp., previous admission, EMS record, old EKG, old radiological studies, urgent care reports/EKG's, [facility] records)? Report findings @ -No old charts were reviewed Differential Diagnosis (chest pain, altered mental status, abdominal pain women, abdominal pain men, vaginal bleeding, weakness, fever, dyspnea, syncope, headache, dizziness, GI bleed, back pain, seizure, CVA, palpatations, mental health, musculoskeletal)? @ -Differential Musculoskeletal Muscular strain, contusion, ligament sprain, fracture, arthritis, septic arthritis, bursitis, cellulitis, muscle spasm, nerve compression, DVT, arterial occlusion, herpes zoster, electrolyte abnormality, tumor.... This is not meant to be in all inclusive list EKG interpreted by me (3pts min.). @ -None X-rays interpreted by me (1pt min.). @ -None done CT interpreted by me (1pt min.). @ -None done U/S interpreted by me (1pt. min.). @ -None done What testing was considered but not performed or refused? (CT, X-rays, U/S, labs)? Why? @ -None What meds were considered but not given or refused? Why? @ -None Did you discuss the management of the patient with other professionals (professionals i.e. , PA, PUBLIC RELATIONS INTERN, lab, RT, psych nurse, social service assistant, employment clerk, teacher, transit authority police officer, director of casework services)? Give summary @ -No Was smoking cessation discussed for >3mins.? @ -No Was critical care preformed (if so, how long)? @ -No Were there social determinants of health that impacted care today? How? (Homelessness, low income, unemployed, alcoholism, drug addiction, transportation, low edu. Level, literacy, decrease access to med. care, detention, rehab)? @ -No Was there de-escalation of care discussed even if they declined (Discuss DNR or withdrawal of care, Hospice)? DNR status @ -No What co-morbidities impacted this encounter? (DM, HTN, Smoking, COPD, CAD, Cancer, CVA, ARF, Chemo, Hep., AIDS, mental health diagnosis, sleep apnea, morbid obesity)? @ -None Was patient admitted / discharged? Hospital course, mention meds given and route, prescriptions, significant lab abnormalities, going to OR and other pertinent info. @ -Discharge. Imaging studies showed no acute findings. Deferred pain medications while here in the ED. Offered boot however patient deferred this as well. Discharged home in stable condition and advised to follow-up at [facility] in one to 5 days. Undiagnosed new problem with uncertain prognosis? @ -No Drug Therapy requiring intensive monitoring for toxicity (Heparin, Nitro, Insulin, Cardizem)? @ -No Were any procedures done? @ -No Diagnosis/symptom? @ -Left foot contusion Acute, or Chronic, or Acute on Chronic? @ -Acute Uncomplicated (without systemic symptoms) or Complicated (systemic symptoms)? @ -Uncomplicated Side effects of treatment? @ -No Exacerbation, Progression, or Severe Exacerbation? @ -No Poses a threat to life or bodily function? How? (Chest pain, [place], [place], pneumonia, PE, COPD, DKA, ARF, appy, cholecystitis, CVA, Diverticulitis, Homicidal, Suicidal, threat to staff... and all critical care pts) @ -No Disposition Clinical Impression: Injury of left foot Disposition: HOME SELF-CARE Condition: Good Instructions (If sedation given, give patient instructions): Foot Contusion (ED) Additional Instructions: Please return to the Emergency Department if symptoms worsen or any other concerns. Is patient prescribed a controlled substance at d/c from ED?: No Referrals: Gucci Smiley MD [Primary Care Provider] - 1-2 days Time of Disposition: 17:56
[2022-10-05 18:24] VITALS: PULSE 65
== END 2022-10-05 18:24 | disposition home or self-care (01) ==
LOC: EC 16:59
DX: S90.32XA Contusion of left foot, initial encounter (principal); J44.9 Chronic obstructive pulmonary disease, unspecified; F17.200 Nicotine dependence, unspecified, uncomplicated; Z79.51 Long term (current) use of inhaled steroids; Z79.899 Other long term (current) drug therapy; Z88.8 Allergy status to other drugs, medicaments and biological substances; W20.8XXA Other cause of strike by thrown, projected or falling object, initial encounter
CPT/HCPCS: 99283

== ENCOUNTER → 2023-04-06 | Outpatient (CLI) | payer BC ==
[2023-04-07 06:09] LABS: Basophils # (A) 0.03 X 10*3/uL (0.00-0.10); Basophils % (A) 0.5 %; Eosinophils # (A) 0.27 X 10*3/uL (0.04-0.35); Eosinophils % (A) 4.3 %; HCT 44.2 % (39.6-50.0); HGB 14.6 g/dL (13.0-17.0); Lymphocytes # (A) 2.04 X 10*3/uL (0.90-5.00); Lymphocytes % (A) 32.6 %; MCH 30.9 pg (27.0-32.0); MCV 93.4 FL (80.0-97.0); Mean Platelet Volume 11.4 FL (9.5-12.2); Monocytes # (A) 0.52 X 10*3/uL (0.20-1.00); Monocytes % (A) 8.3 %; NRBC Per 100 WBC 0 X 10*3/uL (0.00-0.01); Neutrophils # (A) 3.38 X 10*3/uL (1.80-7.70); Platelet Count 229 X 10*3/uL (140-440); RBC 4.73 X 10*6/uL (4.40-5.60); RDW 12.7 % (11.5-14.5); WBC 6.26 X 10*3/uL (4.50-10.00)
[2023-04-07 06:42] LABS: ALT 19 U/L (10-49); AST 18 U/L (14-35); Albumin 4.3 g/dL (3.8-4.9); Albumin/Globulin Ratio 1.87 Ratio (1.60-3.17); Alkaline Phosphatase 98 U/L (41-126); BUN/Creat Ratio 12.23 Ratio (12.00-20.00); Blood Urea Nitrogen 15.9 mg/dL (9.0-27.0); Calcium 9.4 mg/dL (8.7-10.3); Carbon Dioxide 25.8 mmol/L (21.6-31.8); Chloride 101 mmol/L (96-109); Globulin 2.3 g/dL (1.6-3.3); Glucose 85 mg/dL (70-110); LDL Cholesterol,Calculated 72.9 mg/dL (0.0-131.0); Magnesium 2.1 mg/dL (1.5-2.4); Sodium 136 mmol/L (135-145); Total Bilirubin 0.5 mg/dL (0.3-1.2); Total Protein 6.6 g/dL (6.2-8.2); VLDL Calculation 17.72 mg/dL (5.00-40.00)
[2023-04-07 07:46] LABS: % Iron Saturation 27.02 (15.00-50.00); Ferritin 96.5 ng/mL (22.0-322.0); Iron 87 UG/DL (65-175); Prostate Specific Antigen 1.49 ng/mL (0.000-4.500); Total Iron Binding Capacity 322 UG/DL (228-460)
== END | disposition home or self-care (01) ==
LOC: LABWHC1 11:14
PROVIDERS: ATTEND Family Medicine
DX: Z00.00 Encounter for general adult medical examination without abnormal findings (principal); Z12.5 Encounter for screening for malignant neoplasm of prostate; G25.81 Restless legs syndrome
CPT/HCPCS: 36415; 80053; 80061; 82607; 82728; 82746; 83036; 83540; 83550; 83735; 84153; 84443; 85025

== ENCOUNTER → 2023-04-12 | Outpatient (CLI) | payer BC ==
--- NOTE | 2023-04-12 11:57 | US ---
EXAMINATION TYPE: US arterial LE single level DATE OF EXAM: 04/12/2023 9:20 AM CLINICAL INDICATION: Male, 62 years old with history of I73.9 PERIPHERAL VASCULAR DISEASE, UNSPECIFIE D; Restless legs, patient states tingling feet. History of: Smoker: Current Hypertension: Yes Diabetic: No Hyperlipidemia: No TIA/CVA: No Previous Vascular Surgery: Yes, patient states has had veins in the left leg cauterized CAD: No IN: Yes Vascular Ulcers: No Claudication: No Gangrene: No Doppler Waveforms: Right: Multiphasic Left: Multiphasic Right Brachial Pressure: 151 Left Brachial Pressure: 158 Ankle-Brachial Indices: Right: 1.01 Left: 1.06 Toe Brachial Indices: Right: 0.46 Left: 0.51 IMPRESSION: 1. Ankle-brachial indices within normal limits. 2. Toe brachial indices suggestive of moderate to severe disease.
== END | disposition home or self-care (01) ==
LOC: RADUSWWP 08:42
PROVIDERS: ATTEND Family Medicine
DX: I73.9 Peripheral vascular disease, unspecified (principal); I10 Essential (primary) hypertension; F17.200 Nicotine dependence, unspecified, uncomplicated
CPT/HCPCS: 93922

== ENCOUNTER → 2023-04-12 | Outpatient (CLI) | payer BC ==
--- NOTE | 2023-04-12 11:33 | CTL ---
EXAMINATION TYPE: CT Low Dose Lung DATE OF EXAM: 04/12/2023 10:37 AM CLINICAL INDICATION:Male, 62 years old with history of Z12.2 LUNG CA SCREEN F17.210 NICOTINE DEPENDEN CE; Hx nicotine dependence, 1 pk per day x30 years, current smoker, no concerns. , history of tobacco use. COMPARISON: None. TECHNIQUE: Multiple axial non-contrast scans were obtained from approximately the lung apices through the upper abdomen. Coronal and sagittal reformatted images were obtained. Low dose technique was uti lized. CT DLP: 71 mGycm, Automated exposure control for dose reduction was used. CT Contrast: Contrast used: None Oral contrast used: None FINDINGS: ======== Lack of intravenous contrast and low dose technique limits the evaluation of the vascular and soft ti ssue structures. LUNGS: No evidence of pulmonary fibrosis. No evidence of focal consolidation, pneumothorax or pleural effusion. Emphysema changes are seen throughout the lungs. Nodules: RUL: Subpleural 7 mm nodule series 9 image 26 RML: None. RLL: 4 mm series 9 image 49, 4 mm image 38 MIYA: None. LLL: None. AIRWAY: Patent and unremarkable. HEART: Size within normal limits. Aortic valve leaflet calcifications. Mitral valve calcifications ar e present. MEDIASTINUM: No gross evidence of adenopathy. VASCULATURE: No aortic aneurysm. MUSCULOSKELETAL: No acute osseous abnormalities SOFT TISSUES/LYMPH NODES: Unremarkable. LOWER NECK: No significant findings. UPPER ABDOMEN: No significant findings. IMPRESSION: 1. Right upper lung subpleural pulmonary nodule measuring up to [address] Mild emph[address]se[address]. CT LUNG RAD AND CT CHEST RECOMMENDATION: Lung-Rad 3 Probably Benign: 6 month follow-up LDCT. S Modifier (other clinically significant findings): None Recommend smoking cessation (if current smoker), or continuation of smoking cessation (if prior smoke r). Annual screening for lung cancer with low-dose computed tomography is recommended in adults ages 55 to 77 years who have a 30 pack-year smoking history and currently smoke or have quit within the pa st 15 years. Screening should be discontinued once a person has not smoked for 15 years or develops a health problem that substantially limits life expectancy or the ability or willingness to have curat mallika lung surgery. Lung rads 2021 [email or web address]
== END | disposition home or self-care (01) ==
LOC: RADCTMAIN 09:29
PROVIDERS: ATTEND Family Medicine
DX: Z12.2 Encounter for screening for malignant neoplasm of respiratory organs (principal); F17.210 Nicotine dependence, cigarettes, uncomplicated; R91.1 Solitary pulmonary nodule; J43.2 Centrilobular emphysema
CPT/HCPCS: 71271

== ENCOUNTER → 2023-04-23 | Outpatient (CLI) | payer BC ==
--- NOTE | 2023-04-23 18:16 | CA ---
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 18 - 58 / 22 - 52 cm??? LA Volume Index 24.3 cm???/m??? 16 - 28 cm???/m??? DOPPLER AV Peak Velocity 300.1 cm/s AV Peak Gradient 36.0 mmHg AV Mean Velocity 215.8 cm/s AV Mean Gradient 20.5 mmHg AV Velocity Time Integral 70.7 cm AI Peak Velocity 441.2 cm/s AI Peak Gradient 77.9 mmHg AI Pressure Half Time 710.8 ms LVOT Peak Velocity 113.7 cm/s LVOT Peak Gradient 5.2 mmHg LVOT Velocity Time Integral 25.7 cm MR Peak Velocity 549.5 cm/s MR Peak Gradient 120.8 mmHg Mitral E Point Velocity 99.9 cm/s Mitral A Point Velocity 98.2 cm/s Mitral E to A Ratio 1.0 MV Deceleration Time 263.2 ms TR Peak Velocity 263.9 cm/s TR Peak Gradient 27.9 mmHg PV Peak Velocity 79.3 cm/s PV Peak Gradient 2.5 mmHg FINDINGS Left Ventricle Left ventricular ejection fraction is estimated at 55-60 %. Mildly dilated left ventricle Right Ventricle Normal right ventricular size and function. Right Atrium Normal right atrial size. Left Atrium Normal left atrial size. Mitral Valve Mild mitral regurgitation.structurally normal mitral valve. Aortic Valve Moderate aortic regurgitation. Moderate aortic stenosis with a peak gradient of 36 mmHg and a mean gradient of 21 mmHg.aortic valve not well visualized. Tricuspid Valve Mild tricuspid regurgitation.structurally normal tricuspid valve. Pulmonic Valve Structurally normal pulmonic valve. No pulmonic regurgitation. Pericardium No pericardial effusion. Aorta Aortic dilatation. Aorta measuring 4.7cm CONCLUSIONS Technically difficult study. Normal left ventricle systolic function with mildly dilated left ventricle cavity Moderate aortic stenosis with moderate aortic regurgitation. Aortic valve was not well-visualized. Mild mitral and tricuspid regurgitation Dilated ascending aorta Previewed by: Dr. Rah Cisneros MD (Electronically Signed) Final Date: 23 April 2023 18:16
== END | disposition home or self-care (01) ==
LOC: RADECHMAIN 17:15
PROVIDERS: ATTEND Family Medicine
DX: I35.2 Nonrheumatic aortic (valve) stenosis with insufficiency (principal); I99.8 Other disorder of circulatory system; I51.7 Cardiomegaly
CPT/HCPCS: 93306

== ENCOUNTER → 2023-07-19 | Outpatient (CLI) | payer BC ==
--- NOTE | 2023-07-19 15:57 | CT ---
EXAMINATION TYPE: CT angio chest DATE OF EXAM: 07/19/2023 COMPARISON: HISTORY: Monitoring aneurysm CT DLP: 885 mGycm CONTRAST: CTA thoracic aorta with 3-D reconstruction is performed and without and with IV Contrast, patient inj ected with 100 mL of Isovue 370. Contrast CTA of the thoracic aorta was performed from the lung apex through the upper abdomen. 3D re construction imaging obtained at a separate workstation. CT Chest: THORACIC AORTA: Ascending thoracic aorta measures 3.3 cm while the aortic arch measures maximal 2.8 c m and descending thoracic aorta 2.5 cm. Mitral annular and aortic valvular calcifications seen. No ev idence for thoracic aortic aneurysm. Mild atheromatous changes seen. There is no evidence for dissec tion or periaortic collection. LUNGS: The lungs are clear and free of infiltrate or atelectasis. Pulmonary nodules described on rece nt low-dose CT of 04/12/2023 require follow-up in October 2023. No pleural effusion or CT evidence of in terstitial lung disease. MEDIASTINUM: No evidence for mediastinal hematoma. The heart is not enlarged. No evidence for med iastinal mass or adenopathy. HILAR STRUCTURES: No evidence for mass. No hilar adenopathy is appreciated. OTHER: No significant abnormality. IMPRESSION- 1. No evidence for thoracic aortic aneurysm, dissection or mediastinal hematoma. 2. Scattered pulmonary nodules described on recent low-dose CT. As recommended on examination of that day 6 month follow-up low-dose CT recommended in October 2023.
== END | disposition home or self-care (01) ==
LOC: RADCTMAIN 14:50
PROVIDERS: ATTEND Internal Medicine Interventional Cardiology
DX: R91.8 Other nonspecific abnormal finding of lung field (principal); I71.20 Thoracic aortic aneurysm, without rupture, unspecified
CPT/HCPCS: 71275; Q9967

== ENCOUNTER → 2023-10-21 | Outpatient (CLI) | payer OTHER, BC ==
--- NOTE | 2023-11-25 12:47 | XR ---
Patient: Orlando Spence Ordering Physician: Unknown, Unknown ID: [id number] Phone, Pager: Phone: N/A Pager: N/A : 1960 Age/Gender: 63Y, M Primary Location: N/A Procedure: XR wrist complete L T Study Date: 10/21/2023 5:04:00 PM EXAMINATION TYPE: Wrist X-Ray Complete Left DATE OF EXAM: 10/22/2023 CLINICAL HISTORY: pain TECHNIQUE: Frontal, lateral and oblique images of the left wrist are obtained. COMPARISON: None. FINDINGS: There is no acute fracture/dislocation evident. Severe narrowing radiocarpal joint space a s well as the first carpal metacarpal joint. Cystic changes seen within the carpal bones. Remodeling of the distal radius. The overlying soft tissue appears unremarkable. IMPRESSION: There is no acute fracture or dislocation seen. ICD 10 NO FRACTURE, INITIAL EVALUATION
== END | disposition home or self-care (01) ==
LOC: RADXRMAIN 16:43
PROVIDERS: ATTEND Nurse Practitioner Primary Care
DX: S69.92XA Unspecified injury of left wrist, hand and finger(s), initial encounter (principal)

== ENCOUNTER 2024-05-13 10:41 | Day surgery (SDC) | payer BC, OTHER ==
[~2024-05-13 10:41] MED LIST changes: -ACETAMINOPHEN TAB 500 MG TAB PO ONE; -DEXAMETHASONE SOD PHOSPHATE 10 MG/ML 1 ML VIAL IV ONE; -LIDOCAINE 1% 20 ML VIAL (10MG/ML) FOR IV START INTRADERMA PRN; -MELOXICAM 7.5 MG TAB PO ONE; -MORPHINE SULFATE 4 MG/ML SYRINGE IV PRN; -ONDANSETRON 4 MG/2 ML VIAL IVP ONE; -TRANEXAMIC ACID 1,000 MG in SODIUM CHLORIDE 0.9% 50 ML IVPB ONE
[2024-05-13 11:36] VITALS: TEMP 98
[2024-05-13] MEDS: IV FLUID CONTINUATION 1,000 ML IV ONE (11:38)
[2024-05-13 11:42] LABS: Glucose,Whole Blood 86 mg/dL (70-110)
[2024-05-13] MEDS ORDERED: PROPOFOL 10 MG/ML 20 ML VIAL IV ONE (12:51)
[2024-05-13 13:12] VITALS: RESP 14
[2024-05-13 13:27] VITALS: BP 154/72; PULSE 52
--- NOTE | 2024-05-13 13:28 | P.PCN ---
Date of Procedure: 05/13/24 Procedure(s) Performed: BRIEF HISTORY: Patient is a 63-year-old pleasant white male scheduled for an elective colonoscopy as a part of screening for colon cancer. PROCEDURE PERFORMED: Colonoscopy with snare polypectomy PREOPERATIVE DIAGNOSIS: Screening for colon cancer. IV sedation per Anesthesia. PROCEDURE: After informed consent was obtained, the patient, was brought into the endoscopy unit. IV sedation was administered by Anesthesia under continuous monitoring. Digital rectal examination was normal. Initially the Olympus CF-160 flexible video colonoscope was then inserted in the rectum, gradually advanced into the cecum without any difficulty. Careful examination was performed as the scope was gradually being withdrawn. Ileocecal valve and the appendiceal orifice were visualized and appeared normal. Prep was excellent. Mucosa of the cecum, ascending colon, normal. The transverse colon there was a 1 cm polyp removed by snare polypectomy. Rest of the transverse colon, descending colon, sigmoid colon, and rectum appeared normal. Scattered sigmoid diverticulosis. Retroflexion was performed in the rectum and small internal hemorrhoids were seen. The patient tolerated the procedure well. IMPRESSION: 1 cm transverse colon polyp status post polypectomy Scattered sigmoid diverticulosis Grade 2 internal hemorrhoids RECOMMENDATIONS: Findings of this examination were discussed with the patient as well as his family. He was advised to have follow-up with the biopsy results. If the biopsy reveals adenoma he can have repeat colonoscopy in 3 years.
== END 2024-05-13 13:40 | disposition home or self-care (01) ==
LOC: ORWHC2ENDO 10:41
PROVIDERS: ATTEND Internal Medicine Gastroenterology
DX: Z12.11 Encounter for screening for malignant neoplasm of colon (principal); D12.3 Benign neoplasm of transverse colon; K57.30 Diverticulosis of large intestine without perforation or abscess without bleeding; K64.1 Second degree hemorrhoids; I10 Essential (primary) hypertension; J44.9 Chronic obstructive pulmonary disease, unspecified; G25.81 Restless legs syndrome; H91.90 Unspecified hearing loss, unspecified ear; F17.200 Nicotine dependence, unspecified, uncomplicated; Z79.51 Long term (current) use of inhaled steroids; Z79.899 Other long term (current) drug therapy; Z88.8 Allergy status to other drugs, medicaments and biological substances
CPT/HCPCS: 88305; 45385; J2704

== ENCOUNTER → 2024-07-10 | Outpatient (CLI) | payer BC ==
--- NOTE | 2024-07-11 08:22 | PE ---
EXAMINATION TYPE: PET CT fusion whole body DATE OF EXAM: 07/10/2024 COMPARISON: NONE HISTORY: Malignant melanoma. Originally diagnosed 1999 in the upper chest and completed chemotherapy 2000. TECHNIQUE: Following the intravenous administration of 11.05 mCi of F-18 FDG, whole body images are performed from the top of skull to the bottom of the feet. Images are reviewed on the computer in th e coronal, axial, and sagittal planes. Reconstructed rotating images are created on independent work station and reviewed on the computer. A localization and attenuation correction CT is performed in conjunction with the PET scan. Blood glucose level equals 89 SCAN: Subsequent Scan FINDINGS: HEAD AND NECK: No suspicious abnormal hypermetabolic uptake. CHEST, MEDIASTINUM, AND HILAR REGION: No suspicious abnormal hypermetabolic uptake. ABDOMEN AND PELVIS: No suspicious abnormal hypermetabolic uptake. LOWER EXTREMITIES: No suspicious abnormal hypermetabolic uptake. OSSEOUS STRUCTURES: No suspicious abnormal hypermetabolic uptake. OTHER CT: Mild calcified plaque left carotid bulb level. Mild underlying emphysematous change in the upper lungs is present. Some calcification at level of aortic valve is seen. Surgical clips in the bi lateral axilla are present. Slightly enlarged prostate consistent with BPH is seen. Surgical change t o the bilateral knees is identified. IMPRESSION: No hypermetabolic masses identified to suggest malignant melanoma active recurrence. [facility], , 07/11/2024 8:20 AM
== END | disposition home or self-care (01) ==
LOC: RADPETMAIN 07:13
PROVIDERS: ATTEND Family Medicine
DX: C43.9 Malignant melanoma of skin, unspecified (principal); R91.1 Solitary pulmonary nodule; N40.0 Benign prostatic hyperplasia without lower urinary tract symptoms
CPT/HCPCS: 78816; A9552